=== PATIENT | male | born 1980 | race Caucasian/White ===

== ENCOUNTER 2016-09-18 09:38 | Emergency (ER) | payer OTHER, BC ==
[2016-09-18 09:42] VITALS: O2SAT 97
[2016-09-18 09:43] VITALS: BMI 27.0
[2016-09-18] MEDS ORDERED: Lidocaine 1% Inj (20ml) IJ STA (09:45)
[2016-09-18] MEDS ORDERED: TDAP Vaccine 0.5 mL Syr IM ONE (10:04)
--- NOTE | 2016-09-18 10:10 | ED PDOC ---
Lower Extremity Pain/Injury Time Seen by Provider: 09/18/16 09:41 Chief Complaint (Nursing): Abnormal Skin Integrity Chief Complaint (Provider): Laceration Right Leg History Per: Patient History/Exam Limitations: no limitations Onset/Duration Of Symptoms: Hrs Current Symptoms Are (Timing): Still Present Additional Complaint(s): Joe Ayers is a 35 year old male that presents to the ED with a chief complaint of a laceration on his right leg that he sustained earlier today. 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 He reports that no glass was involved and the metal object remained intact. He denies falling or difficulty ambulating. Tetanus vaccination not UTD. Past Medical History Reviewed: Historical Data, Nursing Documentation, Vital Signs Vital Signs: Last Vital Signs Temp 98 F 09/18/16 09:41 Pulse 90 09/18/16 09:41 Resp BP 139/80 09/18/16 09:41 Pulse Ox 97 09/18/16 09:41 - Medical History PMH: Asthma, Back Problems (chronic neck pain) - Surgical History Surgical History: No Surg Hx - Family History Family History: States: Unknown Family Hx - Social History Current smoker - smoking cessation education provided: Yes (light smoker) Alcohol: None Drugs: Denies - Immunization History Hx Tetanus Toxoid Vaccination: No - Home Medications Home Medications: Ambulatory Orders Medication Instructions Recorded Naproxen [Naprosyn] 500 mg PO BID #20 tab 05/29/15 tiZANidine [Zanaflex] 4 mg PO Q8H PRN #20 tab 05/29/15 - Allergies Allergies/Adverse Reactions: Allergies Allergy/AdvReac Type Severity Reaction Status Date / Time No Known Allergies Allergy Verified 01/08/14 18:49 Review of Systems Musculoskeletal: Positive for: Leg Pain (limited to area of laceration only). Negative for: Foot Pain, Other (denies difficulty walking) Skin: Positive for: Other (right leg laceration) Neurological: Negative for: Weakness, Numbness Physical Exam - Reviewed Nursing Documentation Reviewed: Yes Vital Signs Reviewed: Yes - Physical Exam Appears: Positive for: Well, Non-toxic, No Acute Distress Head Exam: Positive for: ATRAUMATIC, NORMOCEPHALIC Eye Exam: Positive for: EOMI, PERRL Pulses-Dorsalis Pedis (L): 2+ Pulses-Dorsalis Pedis (R): 2+ Pulses-Post. Tibialis (L): 2+ Pulses-Post. Tibialis (R): 2+ Extremity: Positive for: Normal ROM (normal ROM and strength), Capillary Refill (<2 seconds), Other (2 cm superficial laceration to lateral side of right leg. No active bleeding. Clean linear edges). Negative for: Deformity, Swelling Neurologic/Psych: Positive for: Alert, Oriented, Gait (steady). Negative for: Motor/Sensory Deficits - ECG O2 Sat by Pulse Oximetry: 97 (RA) Pulse Ox Interpretation: Normal Medical Decision Making Medical Decision Making: Impression: Laceration to Lateral Side of Right Leg. Normal ROM and strength. Ambulating around the ED without issue. Neurovasculary intact Plan: * Laceration Repair * Tetanus Booster * Reevaluation Scribe Attestation: Documented by Ana Cristina Gonzalez, acting as a scribe for Alice Jo MD. Provider Scribe Attestation: All medical record entries made by the Scribe were at my direction and personally dictated by me. I have reviewed the chart and agree that the record accurately reflects my personal performance of the history, physical exam, medical decision making, and the department course for this patient. I have also personally directed, reviewed, and agree with the discharge instructions and disposition. Procedures - Laceration/Wound Repair Right Lateral Calf Wound Length (cm): 2 Wound's Depth, Shape: superficial Wound Explored: clean Irrigated w/ Saline (ccs): 200 Anesthesia: 1% Lidocaine Volume Anesthetic (ccs): 3 Wound Repaired With: Sutures (non-absorbable) Suture Size/Type: 4:0 Number of Sutures: 7 Wound Complexity: Simple Sterile Dressing Applied?: Yes (bacitracin and dressing applied) Disposition - Clinical Impression Clinical Impression: Leg laceration - Disposition Disposition: Routine/Home Disposition Time: 10:20 Condition: GOOD Additional Instructions: Follow up with PMD within 2 days. Follow-up with PMD in 1 week for suture removal. Return to ED if condition worsens. Keep dressing clean and dry Instructions: Care For Your Stitches (ED), Laceration (ED) Forms: [facility] ED School/Work Excuse Print Language: STATELESS
[2016-09-18 10:27] VITALS: BP 128/76; PULSE 78; RESP 20; TEMP 97.6
== END 2016-09-18 10:21 | disposition home or self-care (01) ==
LOC: H.ER 09:38
DX: S81.811A Laceration without foreign body, right lower leg, initial encounter (principal); W27.8XXA Contact with other nonpowered hand tool, initial encounter; Y93.89 Activity, other specified; Y92.9 Unspecified place or not applicable; Y99.0 Civilian activity done for income or pay; J45.909 Unspecified asthma, uncomplicated; Z23 Encounter for immunization; F17.200 Nicotine dependence, unspecified, uncomplicated

== ENCOUNTER 2016-09-19 22:48 | Emergency (ER) | payer BC, OTHER ==
[2016-09-19 22:48] VITALS: BMI 27.0
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
[2016-09-20 12:17] VITALS: PULSE 85; RESP 17; TEMP 98.1; O2SAT 95
== END 2016-09-20 00:01 | disposition home or self-care (01) ==
LOC: H.ER 22:48
DX: Z48.00 Encounter for change or removal of nonsurgical wound dressing (principal)

== ENCOUNTER 2017-01-18 23:04 | Emergency (ER) | payer BC ==
[2017-01-18 23:05] VITALS: BMI 27.0
[2017-01-18 23:08] VITALS: BP 146/96; PULSE 70; RESP 18; TEMP 98.6; O2SAT 96
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
== END 2017-01-19 00:36 | disposition home or self-care (01) ==
LOC: H.ER 23:04
DX: S00.83XA Contusion of other part of head, initial encounter (principal); S00.81XA Abrasion of other part of head, initial encounter; S02.2XXA Fracture of nasal bones, initial encounter for closed fracture; Y04.0XXA Assault by unarmed brawl or fight, initial encounter; Y92.89 Other specified places as the place of occurrence of the external cause; J32.2 Chronic ethmoidal sinusitis; J34.2 Deviated nasal septum; J45.909 Unspecified asthma, uncomplicated

== ENCOUNTER 2017-02-20 22:04 | Emergency (ER) | payer BC ==
[2017-02-20 22:04] VITALS: BMI 27.0
[2017-02-20 22:18] VITALS: RESP 18
[2017-02-20 23:10] LABS: BASO # 0.1 K/uL (0.0-0.2); BASO % 0.8 % (0.0-2.0); EOS # 0.1 K/uL (0.0-0.7); EOS % 0.8 % (0.0-4.0); HEMATOCRIT 48.7 % (35.0-51.0); LYMPH # 3.2 K/uL (1.0-4.3); LYMPH % 33.5 % (20.0-40.0); MEAN CORPUSCULAR HEMOGLOBIN 31.1 pg (27.0-31.0); MEAN CORPUSCULAR HGB CONC 33.8 g/dL (33.0-37.0); MEAN PLATELET VOLUME 8.5 fl (7.2-11.7); MONO # 0.6 K/uL (0.0-0.8); NEUT # 5.6 K/uL (1.8-7.0); NEUT % 58.9 % (50.0-75.0); NRBC % 0.4 % (0.0-0.0); RED CELL DISTRIBUTION WIDTH 12.8 % (11.5-14.5); WHITE BLOOD COUNT 9.4 K/uL (4.8-10.8)
[2017-02-20 23:13] LABS: URINE BACTERIA RARE (<OCC); URINE BILIRUBIN NEGATIVE (NEGATIVE); URINE BLOOD SMALL (NEGATIVE); URINE COLOR STRAW (YELLOW); URINE GLUCOSE (UA) NEG (Normal); URINE KETONE NEGATIVE (NEGATIVE); URINE LEUKOCYTE ESTERASE NEG Leu/uL (Negative); URINE PROTEIN NEGATIVE (NEGATIVE); URINE UROBILINOGEN 0.2-1.0 mg/dL (0.2-1.0); WBC URINE < 1 /hpf (0-5)
[2017-02-20 23:18] LABS: ALCOHOL SERUM 229 mg/dl (0-10); ALKALINE PHOSPHATASE 112 U/L (38-126); ALT/SGPT 69 U/L (21-72); AST/SGOT 46 U/L (17-59); BILIRUBIN,TOTAL 0.5 mg/dl (0.2-1.3); BLOOD UREA NITROGEN 16 mg/dl (9-20); CALCIUM 8.6 mg/dL (8.4-10.2); CARBON DIOXIDE 26 mmol/L (22-30); CHLORIDE 105 mmol/L (98-107); GFR AFRICAN-AMERICAN > 60; GLUCOSE,RANDOM 104 mg/dL (75-110); POTASSIUM 4.5 MMOL/L (3.6-5.0); SODIUM 144 mmol/l (132-148); TOTAL PROTEIN 8.3 G/DL (6.3-8.2)
[2017-02-20 23:21] LABS: ALB/GLOB RATIO 1.4 (1.0-2.1); RBC URINE 6 /hpf (0-3)
--- NOTE | 2017-02-20 23:46 | ED PDOC ---
HPI: Psych/Substance Abuse Time Seen by Provider: 02/20/17 22:14 Chief Complaint (Nursing): Psychiatric Evaluation Chief Complaint (Provider): Psychiatric Evaluation History/Exam Limitations: no limitations Additional Complaint(s): 36 y/o male presents to the ED for crisis evaluation. [place] stating to kill himself. He also admits to alcohol use tonight. Past Medical History Reviewed: Historical Data, Nursing Documentation, Vital Signs Vital Signs: Last Vital Signs Temp Pulse 105 H 02/20/17 22:11 Resp 18 02/20/17 22:11 BP 125/78 02/20/17 22:11 Pulse Ox 100 02/20/17 22:11 - Medical History PMH: Asthma, Back Problems (chronic neck pain) - Family History Family History: States: Unknown Family Hx - Social History Alcohol: Other (yes) - Immunization History Hx Tetanus Toxoid Vaccination: No - Home Medications Home Medications: Ambulatory Orders Medication Instructions Recorded No Known Home Med 02/21/17 - Allergies Allergies/Adverse Reactions: Allergies Allergy/AdvReac Type Severity Reaction Status Date / Time No Known Allergies Allergy Verified 01/08/14 18:49 Review of Systems Review Of Systems: ROS cannot be obtained secondary to pt's inabilty to answer questions. (Cannot obtain information because of clinical condition and alcohol use. Patient is unwilling to answer any further questions to the provider) Physical Exam - Reviewed Nursing Documentation Reviewed: Yes Vital Signs Reviewed: Yes - Physical Exam Appears: Positive for: No Acute Distress Head Exam: Positive for: ATRAUMATIC, NORMAL INSPECTION, NORMOCEPHALIC Skin: Positive for: Normal Color, Warm, Dry Eye Exam: Positive for: EOMI, Normal appearance, PERRL ENT: Positive for: Normal ENT Inspection Neck: Positive for: Normal, Painless ROM, Supple Cardiovascular/Chest: Positive for: Regular Rate, Rhythm. Negative for: Murmur Respiratory: Positive for: Normal Breath Sounds. Negative for: Accessory Muscle Use, Respiratory Distress Gastrointestinal/Abdominal: Positive for: Normal Exam, Bowel Sounds, Soft. Negative for: Tenderness Back: Positive for: Normal Inspection Extremity: Positive for: Normal ROM Neurologic/Psych: Positive for: Alert, Oriented (x3) - Laboratory Results Result Diagrams: 02/20/17 23:00 02/20/17 23:00 - ECG O2 Sat by Pulse Oximetry: 100 (RA) Pulse Ox Interpretation: Normal Medical Decision Making Medical Decision Making: Time: 22:26 Initial Impression: 30 y/o male for crisis evaluation Plan: Crisis evaluation Urine dipstick 1:1 Observation for suicide precaution Accucheck Time: 23:00 Alcohol serum CMP Drug screen CBC w/ diff Urinalysis Reevaluation Time: 05:28 Patient is evaluated by crisis and is meidcally stable. Patient will be discharged home. Clinical Impession: Substance abuse Scribe Attestation: Documented by Radha Isbell acting as a scribe for Ruperto Gagnon MD. Scribe Attestation: All medical record entries made by the Scribe were at my direction and personally dictated by me. I have reviewed the chart and agree that the record accurately reflects my personal performance of the history, physical exam, medical decision making, and the department course for this patient. I have also personally directed, reviewed, and agree with the discharge instructions and disposition. Disposition - Clinical Impression Clinical Impression: Substance induced mood disorder - Disposition Disposition: Routine/Home Disposition Time: 05:28 Condition: FAIR Instructions: Mood Disorders (ED), Polysubstance Abuse (ED) Forms: [facility] ([place])
[2017-02-21 04:55] VITALS: BP 129/79; PULSE 81; TEMP 98.2
[2017-02-21 05:30] VITALS: O2SAT 100
== END 2017-02-21 05:43 | disposition home or self-care (01) ==
LOC: H.ER 22:04
DX: F06.30 Mood disorder due to known physiological condition, unspecified (principal); F19.10 Other psychoactive substance abuse, uncomplicated; J45.909 Unspecified asthma, uncomplicated
CPT/HCPCS: 80053; 81003; 85025; 99285; G0480

== ENCOUNTER 2017-07-27 16:35 | Emergency (ER) | payer SELFPAY ==
[2017-07-27 16:35] VITALS: BMI 27.0
[2017-07-27 16:45] VITALS: BP 116/63; PULSE 93; RESP 16; TEMP 98.3; O2SAT 99
[2017-07-27] MEDS ORDERED: Naproxen 500 MG TAB PO STA (17:26)
[2017-07-27] MEDS ORDERED: Naproxen 500 MG TAB PO ONE (17:34)
--- NOTE | 2017-07-27 17:43 | ED PDOC ---
HPI: General Adult Time Seen by Provider: 07/27/17 17:25 Chief Complaint (Nursing): Back Pain Chief Complaint (Provider): Neck and back pain History Per: Patient History/Exam Limitations: no limitations Onset/Duration Of Symptoms: Other (long time) Current Symptoms Are (Timing): Still Present Additional Complaint(s): 36 year old female presented to ED complaining of neck and back pain for a long time. Patient denies any recent trauma and has not taken meds or seen any physician for it. PCP: none provided Past Medical History Reviewed: Historical Data, Nursing Documentation, Vital Signs Vital Signs: Last Vital Signs Temp 98.3 F 07/27/17 16:42 Pulse 93 H 07/27/17 16:42 Resp 16 07/27/17 16:42 BP 116/63 07/27/17 16:42 Pulse Ox 99 07/27/17 17:47 - Medical History PMH: Asthma, Back Problems (chronic neck pain) Denies: Diabetes, Hepatitis, HIV, HTN, Seizures, Sexually Transmitted Disease - Surgical History Surgical History: No Surg Hx - Family History Family History: States: Unknown Family Hx - Immunization History Hx Tetanus Toxoid Vaccination: No - Home Medications Home Medications: Ambulatory Orders Medication Instructions Recorded Naproxen 375 mg PO Q8 PRN #21 tablet 07/27/17 - Allergies Allergies/Adverse Reactions: Allergies Allergy/AdvReac Type Severity Reaction Status Date / Time No Known Allergies Allergy Verified 01/08/14 18:49 Review of Systems ROS Statement: Except As Marked, All Systems Reviewed And Found Negative Musculoskeletal: Positive for: Neck Pain, Back Pain Physical Exam - Reviewed Nursing Documentation Reviewed: Yes Vital Signs Reviewed: Yes - Physical Exam Appears: Positive for: Non-toxic, No Acute Distress Head Exam: Positive for: ATRAUMATIC, NORMAL INSPECTION, NORMOCEPHALIC Skin: Positive for: Normal Color, Warm, Dry Eye Exam: Positive for: Normal appearance Neck: Positive for: Normal, Painless ROM Extremity: Positive for: Normal ROM Neurologic/Psych: Positive for: Alert, Oriented Comments: NECK: (-) tenderness elicited on neck or back, (-) erythema - ECG O2 Sat by Pulse Oximetry: 99 (RA) Pulse Ox Interpretation: Normal Medical Decision Making Medical Decision Making: Initial impression: neck and back pain Initial plan: Naproxen 500mg PO Patient states he has no insurance or money for prescription or pain medication right now. From previous visits, patient is noted to be positive for opioid and cocaine. Scribe Attestation: Documented by Kenneth Bradford acting as a scribe for Betty GARCIA. Provider Scribe Attestation: All medical record entries made by the Scribe were at my direction and personally dictated by me. I have reviewed the chart and agree that the record accurately reflects my personal performance of the history, physical exam, medical decision making, and the department course for this patient. I have also personally directed, reviewed, and agree with the discharge instructions and disposition. Disposition - Clinical Impression Clinical Impression: Back strain - Patient ED Disposition Is Patient to be Admitted: No - Disposition Referrals: [facility] [Outside] Disposition: Routine/Home Disposition Time: 17:36 Condition: GOOD Prescriptions: Naproxen 375 mg PO Q8 PRN #21 tablet PRN Reason: Pain, Moderate (4-7) Instructions: Muscle Strain (DC) Forms: [employer] (Sri Lankan)
== END 2017-07-27 17:38 | disposition home or self-care (01) ==
LOC: H.ER 16:35
DX: S39.012A Strain of muscle, fascia and tendon of lower back, initial encounter (principal); Y92.89 Other specified places as the place of occurrence of the external cause

== ENCOUNTER 2017-08-09 09:31 | Emergency (ER) | payer MEDICAID ==
[2017-08-09 09:58] VITALS: TEMP 97; O2SAT 97
[2017-08-09 10:01] VITALS: BMI 25.7
--- NOTE | 2017-08-09 10:21 | ED PDOC ---
HPI: Back Time Seen by Provider: 08/09/17 10:08 Chief Complaint (Nursing): Back Pain History Per: Patient Onset/Duration Of Symptoms: Other (Chronic) Current Symptoms Are (Timing): Still Present Quality Of Discomfort: Aching Severity: Moderate Pain Scale Rating Of: 4 Previous Symptoms: Back Pain Associated Symptoms: None Exacerbating Factor(s): Movement Additional Complaint(s): Chronic low back pain radiating to both legs x many weeks. States h/o "pinched nerve" in back, prescribed Percocet but ran out. No new weakness or parasthesias. No urinary sxs. Past Medical History Vital Signs: Last Vital Signs Temp 97 F L 08/09/17 09:57 Pulse 82 08/09/17 09:57 Resp BP 129/72 08/09/17 09:57 Pulse Ox 97 08/09/17 09:57 - Medical History PMH: Asthma, Back Problems (chronic neck pain) Denies: Diabetes, Hepatitis, HIV, HTN, Seizures, Sexually Transmitted Disease - Family History Family History: States: Unknown Family Hx - Immunization History Hx Tetanus Toxoid Vaccination: No - Home Medications Home Medications: Ambulatory Orders Medication Instructions Recorded Naproxen 375 mg PO Q8 PRN #21 tablet 07/27/17 Cyclobenzaprine [Cyclobenzaprine 10 mg PO Q8 #10 tab 08/09/17 HCl] Methylprednisolone [Medrol Dose 4 mg PO DAILY #21 tab 08/09/17 Pack (21 tabs)] - Allergies Allergies/Adverse Reactions: Allergies Allergy/AdvReac Type Severity Reaction Status Date / Time No Known Allergies Allergy Verified 01/08/14 18:49 Review of Systems Constitutional: Negative for: Fever Genitourinary Male: Negative for: Dysuria, Frequency, Incontinence Musculoskeletal: Positive for: Back Pain Neurological: Negative for: Weakness, Numbness Physical Exam - Physical Exam Appears: Positive for: Non-toxic, No Acute Distress Skin: Positive for: Normal Color, Warm, DRY Back: Positive for: Normal Inspection, Muscle Spasm (Bilat lumbar area). Negative for: Vertebral Tenderness Extremity: Positive for: Normal ROM Neurologic/Psych: Positive for: Alert, Oriented. Negative for: Motor/Sensory Deficits - ECG O2 Sat by Pulse Oximetry: 97 Disposition - Clinical Impression Clinical Impression: Chronic back pain - Patient ED Disposition Is Patient to be Admitted: No Counseled Patient/Family Regarding: Diagnosis, Need For Followup, Rx Given - Disposition Referrals: Jeremiah Bocanegra MD [Staff Provider] - Disposition: Routine/Home Disposition Time: 11:22 Condition: FAIR Prescriptions: Cyclobenzaprine [Cyclobenzaprine HCl] 10 mg PO Q8 #10 tab Methylprednisolone [Medrol Dose Pack (21 tabs)] 4 mg PO DAILY #21 tab Instructions: Low Back Pain in Adults Forms: [employer] (Frisian)
[2017-08-09 11:53] VITALS: BP 126/70; PULSE 78; RESP 18
== END 2017-08-09 11:30 | disposition home or self-care (01) ==
LOC: H.ER 09:31
DX: M54.9 Dorsalgia, unspecified (principal); G89.29 Other chronic pain
CPT/HCPCS: 96374; 99283; J1885

== ENCOUNTER 2017-09-09 01:10 | Emergency (ER) | payer BC, MEDICAID ==
[2017-09-09 01:10] VITALS: BMI 25.7
[2017-09-09 01:23] VITALS: O2SAT 98
--- NOTE | 2017-09-09 02:46 | ED PDOC ---
Syncope/Near Syncope/Dizziness Time Seen by Provider: 09/09/17 01:33 Chief Complaint (Nursing): Dizziness/Lightheaded Chief Complaint (Provider): Dizziness History Per: Patient History/Exam Limitations: no limitations Onset/Duration Of Symptoms: Days (x5) Current Symptoms Are (Timing): Still Present Seizure Or Post-ictal Symptoms: None Fall Associated With With Symptoms: No Additional Complaint(s): Joe Ayers is a 36 year old male, with no significant past medical history, who presents to the emergency department complaining of dizziness onset for x5 days. Patient admits to drug abuse, last use x2 days ago and also reports drinking alcohol this afternoon. He denies any fever, chills, vomiting, diarrhea or other medical complaint. no falls or passing out. PMD: None provided. Past Medical History Reviewed: Historical Data, Nursing Documentation, Vital Signs Vital Signs: Last Vital Signs Temp 98.7 F 09/09/17 01:21 Pulse 87 09/09/17 01:21 Resp 16 09/09/17 01:21 BP 124/76 09/09/17 01:21 Pulse Ox 98 09/09/17 01:21 - Medical History PMH: Asthma, Back Problems (chronic neck pain) Denies: Diabetes, Hepatitis, HIV, HTN, Seizures, Sexually Transmitted Disease - Surgical History Surgical History: No Surg Hx - Family History Family History: States: Unknown Family Hx - Social History Current smoker - smoking cessation education provided: Yes (Light smoker <10 cigarettes daily) Alcohol: > 2 Drinks/Day Drugs: Cannabis, Opiates - Immunization History Hx Tetanus Toxoid Vaccination: No - Home Medications Home Medications: Ambulatory Orders Medication Instructions Recorded Naproxen 375 mg PO Q8 PRN #21 tablet 07/27/17 Cyclobenzaprine [Cyclobenzaprine 10 mg PO Q8 #10 tab 08/09/17 HCl] Methylprednisolone [Medrol Dose 4 mg PO DAILY #21 tab 08/09/17 Pack (21 tabs)] - Allergies Allergies/Adverse Reactions: Allergies Allergy/AdvReac Type Severity Reaction Status Date / Time No Known Allergies Allergy Verified 01/08/14 18:49 Review of Systems ROS Statement: Except As Marked, All Systems Reviewed And Found Negative Constitutional: Negative for: Fever, Chills Gastrointestinal: Negative for: Vomiting, Diarrhea Neurological: Positive for: Dizziness Physical Exam - Reviewed Nursing Documentation Reviewed: Yes Vital Signs Reviewed: Yes - Physical Exam Appears: Positive for: Non-toxic, No Acute Distress Head Exam: Positive for: ATRAUMATIC, NORMAL INSPECTION, NORMOCEPHALIC Skin: Positive for: Normal Color, Warm, Dry Eye Exam: Positive for: Normal appearance, EOMI, PERRL Neck: Positive for: Painless ROM, Supple Cardiovascular/Chest: Positive for: Regular Rate, Rhythm. Negative for: Murmur Respiratory: Positive for: Normal Breath Sounds. Negative for: Respiratory Distress Gastrointestinal/Abdominal: Positive for: Normal Exam, Soft. Negative for: Tenderness, Guarding, Rebound Extremity: Positive for: Normal ROM (upper and lower extremities). Negative for : Deformity, Swelling Neurologic/Psych: Positive for: Alert, Oriented. Negative for: Motor/Sensory Deficits - Laboratory Results Result Diagrams: 09/09/17 02:52 09/09/17 02:52 - ECG O2 Sat by Pulse Oximetry: 98 (RA) Pulse Ox Interpretation: Normal Medical Decision Making Medical Decision Making: Time: 01:33 Initial Impression: substance abuse Initial Plan: --Alcohol serum --CMP --Drug screen, urine --CBC w/ differential --Reevaluation 04:25 -Positive cocaine, methadone and alcohol. pt states that dizziness resolved. 430 am Pt ambulating with stable gait, stable vital signs, stable for dc. ----- Scribe Attestation: Documented by Wilmer Tirado, acting as a scribe for Carolina Ramirez MD. Provider Scribe Attestation: All medical record entries made by the Scribe were at my direction and personally dictated by me. I have reviewed the chart and agree that the record accurately reflects my personal performance of the history, physical exam, medical decision making, and the department course for this patient. I have also personally directed, reviewed, and agree with the discharge instructions and disposition. Disposition - Clinical Impression Clinical Impression: Dizziness, Substance abuse - Patient ED Disposition Is Patient to be Admitted: No Counseled Patient/Family Regarding: Studies Performed, Diagnosis, Need For Followup - Disposition Referrals: [facility] [Outside] [facility] [Outside] Disposition: Routine/Home Disposition Time: 04:35 Condition: IMPROVED Additional Instructions: follow up with your doctor in 2 days return to the ED with any worsening or concerning symptoms Instructions: Drug Abuse and Drug Addiction (DC) Forms: [employer] (Persian)
[2017-09-09 03:16] LABS: BASO # 0.1 K/uL (0.0-0.2); BASO % 0.9 % (0.0-2.0); EOS # 0.5 K/uL (0.0-0.7); EOS % 4.6 % (0.0-4.0); HEMOGLOBIN 15.2 g/dL (12.0-18.0); LYMPH # 4.4 K/uL (1.0-4.3); LYMPH % 43.9 % (20.0-40.0); MEAN CELL VOLUME 94.8 fl (80.0-94.0); MEAN CORPUSCULAR HEMOGLOBIN 32.3 pg (27.0-31.0); MEAN CORPUSCULAR HGB CONC 34.1 g/dL (33.0-37.0); MEAN PLATELET VOLUME 8.8 fl (7.2-11.7); MONO # 0.8 K/uL (0.0-0.8); NEUT # 4.2 K/uL (1.8-7.0); NEUT % 42.6 % (50.0-75.0); NRBC % 0.2 % (0.0-0.0); RBC 4.72 Mil/uL (4.40-5.90); RED CELL DISTRIBUTION WIDTH 13.8 % (11.5-14.5); WHITE BLOOD COUNT 9.9 K/uL (4.8-10.8)
[2017-09-09 03:27] LABS: ALB/GLOB RATIO 1.3 (1.0-2.1); ALT/SGPT 28 U/L (21-72); AST/SGOT 19 U/L (17-59); BLOOD UREA NITROGEN 13 mg/dl (9-20); CALCIUM 8.4 mg/dL (8.4-10.2); GFR AFRICAN-AMERICAN > 60; GFR NON-AFRICAN AMERICAN > 60
[2017-09-09 03:45] LABS: BARBITURATES, UR NEGATIVE (NEGATIVE); BENZODIAZEPINES, UR NEGATIVE (NEGATIVE); OPIATES, UR NEGATIVE (NEGATIVE); PHENCYCLIDINE, UR NEGATIVE (NEGATIVE)
[2017-09-09 04:48] VITALS: BP 119/58; PULSE 74; RESP 18; TEMP 97.7
== END 2017-09-09 04:56 | disposition home or self-care (01) ==
LOC: H.ER 01:10
DX: R42 Dizziness and giddiness (principal); F19.10 Other psychoactive substance abuse, uncomplicated
CPT/HCPCS: 80053; 85025; 99284; G0480

== ENCOUNTER 2017-09-21 15:36 | Emergency (ER) | payer BC, MEDICAID ==
[2017-09-21 15:36] VITALS: BMI 25.7
[2017-09-21 15:47] VITALS: BP 123/69; PULSE 95; RESP 18; TEMP 98.7; O2SAT 100
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
[2017-09-21] MEDS ORDERED: Tdap Vaccine 0.5 ml Vial (10-64 yrs) IM ONE ×2 (16:19→16:30)
[2017-09-21 16:41] LABS: BASO % 0.5 % (0.0-2.0); EOS # 0.1 K/uL (0.0-0.7); HEMOGLOBIN 15.9 g/dL (12.0-18.0); LYMPH # 1.8 K/uL (1.0-4.3); LYMPH % 19.8 % (20.0-40.0); MEAN CELL VOLUME 94.9 fl (80.0-94.0); MEAN CORPUSCULAR HEMOGLOBIN 32.1 pg (27.0-31.0); MEAN CORPUSCULAR HGB CONC 33.9 g/dL (33.0-37.0); MONO # 0.5 K/uL (0.0-0.8); MONO % 5.5 % (0.0-10.0); NEUT # 6.5 K/uL (1.8-7.0); NEUT % 73.2 % (50.0-75.0); NRBC % 0.1 % (0.0-0.0); RBC 4.95 Mil/uL (4.40-5.90); RED CELL DISTRIBUTION WIDTH 13.3 % (11.5-14.5); WHITE BLOOD COUNT 8.9 K/uL (4.8-10.8)
[2017-09-21 16:52] LABS: ALB/GLOB RATIO 1.4 (1.0-2.1); ALBUMIN 4.3 g/dL (3.5-5.0); ALT/SGPT 30 U/L (21-72); AST/SGOT 23 U/L (17-59); BLOOD UREA NITROGEN 15 mg/dl (9-20); GFR NON-AFRICAN AMERICAN > 60
[2017-09-21 17:31] LABS: BARBITURATES, UR NEGATIVE (NEGATIVE); BENZODIAZEPINES, UR NEGATIVE (NEGATIVE); OPIATES, UR POSITIVE (NEGATIVE); PHENCYCLIDINE, UR NEGATIVE (NEGATIVE)
== END 2017-09-21 16:50 | disposition left against medical advice (07) ==
LOC: H.ER 15:36
DX: S51.811A Laceration without foreign body of right forearm, initial encounter (principal); W26.0XXA Contact with knife, initial encounter; Y92.89 Other specified places as the place of occurrence of the external cause
CPT/HCPCS: 80053; 85025; 99283; G0480

== ENCOUNTER 2017-09-22 02:03 | Emergency (ER) | payer BC, MEDICAID ==
[2017-09-22 02:26] VITALS: BMI 23.7
[2017-09-22 02:33] VITALS: RESP 18; O2SAT 100
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
[2017-09-22 03:42] LABS: BASO # 0.1 K/uL (0.0-0.2); BASO % 0.9 % (0.0-2.0); EOS # 0.5 K/uL (0.0-0.7); EOS % 5.1 % (0.0-4.0); LYMPH # 3.5 K/uL (1.0-4.3); LYMPH % 36.6 % (20.0-40.0); MEAN CELL VOLUME 94.1 fl (80.0-94.0); MEAN CORPUSCULAR HEMOGLOBIN 32.2 pg (27.0-31.0); MEAN CORPUSCULAR HGB CONC 34.3 g/dL (33.0-37.0); MEAN PLATELET VOLUME 8.8 fl (7.2-11.7); MONO # 1.1 K/uL (0.0-0.8); MONO % 11.1 % (0.0-10.0); NEUT # 4.4 K/uL (1.8-7.0); NEUT % 46.3 % (50.0-75.0); NRBC % 0.2 % (0.0-0.0); RBC 4.65 Mil/uL (4.40-5.90); RED CELL DISTRIBUTION WIDTH 13.3 % (11.5-14.5); WHITE BLOOD COUNT 9.5 K/uL (4.8-10.8)
[2017-09-22 04:02] LABS: BARBITURATES, UR NEGATIVE (NEGATIVE); BENZODIAZEPINES, UR NEGATIVE (NEGATIVE); OPIATES, UR POSITIVE (NEGATIVE); PHENCYCLIDINE, UR NEGATIVE (NEGATIVE)
[2017-09-22 04:02] LABS: ALB/GLOB RATIO 1.2 (1.0-2.1); ALBUMIN 3.8 g/dL (3.5-5.0); ALT/SGPT 27 U/L (21-72); AST/SGOT 29 U/L (17-59); BLOOD UREA NITROGEN 17 mg/dl (9-20); CALCIUM 8.5 mg/dL (8.4-10.2); GFR AFRICAN-AMERICAN > 60; GFR NON-AFRICAN AMERICAN > 60
[2017-09-22 04:44] VITALS: BP 118/59; PULSE 72; TEMP 98.5
== END 2017-09-22 04:49 | disposition home or self-care (01) ==
LOC: H.ER 02:03
DX: F19.94 Other psychoactive substance use, unspecified with psychoactive substance-induced mood disorder (principal)
CPT/HCPCS: 80053; 85025; 99282; G0480

== ENCOUNTER 2018-03-10 00:37 | Emergency (ER) | payer BC, MEDICAID ==
[2018-03-10 00:37] VITALS: BMI 23.7
[2018-03-10 01:04] VITALS: BP 114/74; PULSE 76; RESP 16; TEMP 98.2; O2SAT 97
--- NOTE | 2018-03-10 05:22 | ED PDOC ---
HPI: Back Time Seen by Provider: 03/10/18 00:40 Chief Complaint (Nursing): Back Pain Chief Complaint (Provider): Back Pain History Per: Patient History/Exam Limitations: no limitations Onset/Duration Of Symptoms: Days (x1 day) Current Symptoms Are (Timing): Still Present Additional Complaint(s): Joe Ayers is a 37 year old male with a history of drug and ETOH abuse, back problems and asthma, who presents to the emergency department complaining of back pain and bilateral leg pain, onset x1 day. Patient is seen to be sleeping in room refusing medications for pain. PMD: Jeremiah Bocanegra Past Medical History Reviewed: Historical Data, Nursing Documentation, Vital Signs Vital Signs: Last Vital Signs Temp 98.2 F 03/10/18 01:02 Pulse 76 03/10/18 01:02 Resp 16 03/10/18 01:02 BP 114/74 03/10/18 01:02 Pulse Ox 97 03/10/18 01:02 - Medical History PMH: Asthma, Back Problems (chronic neck pain) Denies: Diabetes, Hepatitis, HIV, HTN, Chronic Kidney Disease, Seizures, Sexually Transmitted Disease - Surgical History Surgical History: No Surg Hx - Family History Family History: States: Unknown Family Hx - Social History Current smoker - smoking cessation education provided: No Alcohol: < 2 Drinks/Day Drugs: Denies - Immunization History Hx Tetanus Toxoid Vaccination: No Hx Influenza Vaccination: No Hx Pneumococcal Vaccination: No - Home Medications Home Medications: Ambulatory Orders Medication Instructions Recorded RX: No Known Home Med 09/27/17 - Allergies Allergies/Adverse Reactions: Allergies Allergy/AdvReac Type Severity Reaction Status Date / Time No Known Allergies Allergy Verified 03/10/18 01:01 Review of Systems ROS Statement: Except As Marked, All Systems Reviewed And Found Negative Musculoskeletal: Positive for: Back Pain, Other (leg pain) Physical Exam - Reviewed Nursing Documentation Reviewed: Yes Vital Signs Reviewed: Yes - Physical Exam Appears: Positive for: Non-toxic, No Acute Distress Head Exam: Positive for: ATRAUMATIC, NORMOCEPHALIC Skin: Positive for: Normal Color, Warm, Dry Eye Exam: Positive for: Normal appearance ENT: Positive for: Normal ENT Inspection Neck: Positive for: Normal Cardiovascular/Chest: Positive for: Regular Rate, Rhythm. Negative for: Murmur Respiratory: Positive for: Normal Breath Sounds. Negative for: Respiratory Distress Gastrointestinal/Abdominal: Positive for: Normal Exam Back: Positive for: Normal Inspection. Negative for: L CVA Tenderness, R CVA Tenderness, Vertebral Tenderness Extremity: Positive for: Normal ROM. 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 Negative for: Motor/Sensory Deficits, Aphasia, Facial Droop - ECG O2 Sat by Pulse Oximetry: 97 (RA) Pulse Ox Interpretation: Normal Medical Decision Making Medical Decision Making: Time: 400 Plan: pain, chronic --Motrin 600 mg PO --Tylenol 650 mg PO upon reeval pt sleeping in no distress. resting comfortably. Patient refusing to take medication for pain. stbale for dc. outtp follow up recommended. Scribe Attestation: Documented by Nikko Valdez, acting as a scribe for Carolina Ramirez MD Provider Scribe Attestation: All medical record entries made by the Scribe were at my direction and personally dictated by me. I have reviewed the chart and agree that the record accurately reflects my personal performance of the history, physical exam, medical decision making, and the department course for this patient. I have also personally directed, reviewed, and agree with the discharge instructions and disposition. Disposition - Clinical Impression Clinical Impression: Chronic back pain - Patient ED Disposition Is Patient to be Admitted: No Counseled Patient/Family Regarding: Studies Performed, Diagnosis, Need For Followup - Disposition Disposition: Routine/Home Disposition Time: 05:20 Condition: IMPROVED Additional Instructions: follow up with your primary doctor in 1-2 days return to the ED with any worsening or concerning symptoms Instructions: Chronic Pain (DC) Forms: [employer] (Czech)
== END 2018-03-10 04:59 | disposition home or self-care (01) ==
LOC: H.ER 00:37
DX: M54.9 Dorsalgia, unspecified (principal)

== ENCOUNTER 2018-03-23 20:17 | Emergency (ER) | payer BC ==
[2018-03-23 20:17] VITALS: BMI 23.7
[2018-03-23 20:27] VITALS: BP 121/70; PULSE 86; RESP 16; TEMP 98.5; O2SAT 98
--- NOTE | 2018-03-23 21:44 | ED PDOC ---
HPI: Back Time Seen by Provider: 03/23/18 20:43 Chief Complaint (Nursing): Back Pain Chief Complaint (Provider): Chronic Back Pain History Per: Patient History/Exam Limitations: no limitations Onset/Duration Of Symptoms: Days (>180 days) Current Symptoms Are (Timing): Still Present Quality Of Discomfort: "Pain" Severity: Mild Past Medical History Reviewed: Historical Data, Nursing Documentation, Vital Signs Vital Signs: Last Vital Signs Temp 98.5 F 03/23/18 20:23 Pulse 86 03/23/18 20:23 Resp 16 03/23/18 20:23 BP 121/70 03/23/18 20:23 Pulse Ox 98 03/23/18 20:23 - Medical History PMH: Asthma, Back Problems (chronic neck pain) Denies: Diabetes, Hepatitis, HIV, HTN, Chronic Kidney Disease, Seizures, Sexually Transmitted Disease - Family History Family History: States: Unknown Family Hx - Immunization History Hx Tetanus Toxoid Vaccination: No Hx Influenza Vaccination: No Hx Pneumococcal Vaccination: No - Home Medications Home Medications: Ambulatory Orders Medication Instructions Recorded Indomethacin 1 cap PO TID #33 capsule 03/23/18 Methylprednisolone [Medrol Dose 4 mg PO ASDIR #21 mg 03/23/18 Pack (21 tabs)] - Allergies Allergies/Adverse Reactions: Allergies Allergy/AdvReac Type Severity Reaction Status Date / Time No Known Allergies Allergy Verified 03/23/18 20:23 Review of Systems ROS Statement: Except As Marked, All Systems Reviewed And Found Negative Musculoskeletal: Positive for: Back Pain (chronic) Physical Exam - Reviewed Nursing Documentation Reviewed: Yes Vital Signs Reviewed: Yes - Physical Exam Appears: Positive for: Well, Non-toxic, No Acute Distress. Negative for: Uncomfortable Head Exam: Positive for: ATRAUMATIC, NORMAL INSPECTION Skin: Positive for: Normal Color, Warm, Dry. Negative for: Diaphoresis, Pallor, Rash Neck: Positive for: Normal, Painless ROM, Supple. Negative for: Decreased ROM Cardiovascular/Chest: Positive for: Regular Rate, Rhythm Respiratory: Positive for: Normal Breath Sounds Pulses-Carotid (L): 2+ Pulses-Carotid (R): 2+ Pulses-Radial (L): 2+ Pulses-Radial (R): 2+ Back: Positive for: Normal Inspection. Negative for: Vertebral Tenderness, Decreased ROM (straight leg test negative bilaterally to past 40 degrees) - ECG O2 Sat by Pulse Oximetry: 98 Medical Decision Making Medical Decision Making: Pt indicates exposure to HIV virus and requests HIV screening; accordingly a rapid HIV test was ordered Disposition - Clinical Impression Clinical Impression: Chronic back pain greater than 3 months duration Counseled Patient/Family Regarding: Studies Performed, Diagnosis, Need For Followup, Rx Given - Disposition Disposition: Routine/Home Disposition Time: 22:49 Condition: STABLE Additional Instructions: Pt HIV test is negative Prescriptions: Indomethacin 1 cap PO TID #33 capsule Methylprednisolone [Medrol Dose Pack (21 tabs)] 4 mg PO ASDIR #21 mg Instructions: Chronic Pain (DC) Forms: [employer] (Malay)
== END 2018-03-23 22:52 | disposition home or self-care (01) ==
LOC: H.ER 20:17
DX: M54.9 Dorsalgia, unspecified (principal); Z20.6 Contact with and (suspected) exposure to human immunodeficiency virus [HIV]
CPT/HCPCS: 87390; 96372; 99283; J1885